=== PATIENT | male | born 1965 | race Caucasian/White ===

== ENCOUNTER 2020-11-03 13:47 | Emergency (ER) | payer BC ==
[~2020-11-03] VITALS: Ht 177.8 cm; Wt 117.7 kg
[2020-11-03] MEDS ORDERED: LIDOCAINE 1%, 10ML INFIL ONE (14:30)
--- NOTE | 2020-11-03 16:00 | NUR ---
UP FOR ROAD TEST. PT ABLE TO WALK TO MAIN NURSES STATION AND BACK WITH NO COMPLAINTS, HOWEVER WHEN RETURNING TO ROOM PT STATES HE IS STARTING TO FEEL DIZZY. HR 120-140 BUT DECLINING WITH REST DOWN TO 80-95, SP02 95% RA AND BP 153/78
--- NOTE | 2020-11-03 16:03 | NUR ---
A FEW MINUTES AFTER WALK PT IS NOW DIZZINESS BUT STATES 'I DO NOT FEEL WELL" WHEN ASKED TO DESCRIBE PT STATES "FUNKY".
[2020-11-03] MEDS ORDERED: LIDOCAINE-MPF 1%, 5ML ONE (16:15)
[2020-11-03] MEDS ORDERED: LIDOCAINE-MPF 1%, 5ML INFIL ONE (16:30)
[2020-11-03] MEDS ORDERED: NEOSPORIN OINT. PKT 1 PACKET ONE (16:48)
[2020-11-03 16:57] VITALS: BP 121/71
== END 2020-11-03 16:59 | disposition home or self-care (01) ==
LOC: ED 16:50
DX: S61.412A Laceration without foreign body of left hand, initial encounter (principal); E11.9 Type 2 diabetes mellitus without complications; W26.0XXA Contact with knife, initial encounter; Y93.89 Activity, other specified; Y92.89 Other specified places as the place of occurrence of the external cause; Y99.8 Other external cause status
CPT/HCPCS: 12001; 99283